=== PATIENT | male | born 1950 | race Caucasian/White ===

== ENCOUNTER 2019-03-01 06:19 | Inpatient (IN) | payer MEDICARE, BC ==
[2019-02-11 15:32] LABS: BASOPHILS % (AUTO) 0.3 % (0-1); EOSINOPHILS # (AUTO) 0.1 X10'3 (0-0.9); EOSINOPHILS % (AUTO) 1.4 % (0-6); LYMPHOCYTES # (AUTO) 1.3 X10'3 (1.1-4.8); LYMPHOCYTES % (AUTO) 20.7 % (21-51); MEAN CORPUSCULAR HEMOGLOBIN 33.6 PG (27.0-31.0); MEAN CORPUSCULAR HGB CONC 34.3 g/dL (33.0-36.5); MEAN CORPUSCULAR VOLUME 97.8 FL (78-98); MEAN PLATELET VOLUME 7.1 FL (7.4-10.4); MONOCYTES # (AUTO) 0.9 X10'3 (0-0.9); MONOCYTES % (AUTO) 14.6 % (2-12); NEUTROPHILS # (AUTO) 3.9 X10'3 (1.8-7.7); PRE OP HEMOGLOBIN 14.7 g/dL (14.0-17.9); PRE OP PLATELET COUNT 313 X10'3 (140-440); RED BLOOD COUNT 4.39 X10'6 (4.70-6.10); RED CELL DISTRIBUTION WIDTH 14.2 % (11.5-14.5)
[2019-02-11 15:56] LABS: ALBUMIN 3.9 G/DL (3.4-5.0); ALBUMIN/GLOBULIN RATIO 1.4 (1.1-1.5); ALKALINE PHOSPHATASE 64 IU/L (46-116); BLOOD UREA NITROGEN 18 MG/DL (7-18); BUN/CREATININE RATIO 19.6 (5.4-32.0); CALCIUM 8.9 MG/DL (8.5-10.1); CHLORIDE 107 MMOL/L (99-107); CREATININE 0.92 MG/DL (0.60-1.10); PRE OP ALT 32 U/L (30-65); PRE OP ANION GAP 8 (8-16); PRE OP AST 22 U/L (10-37); PRE OP BILIRUB, TOTAL 0.7 MG/DL (0.0-1.0); PRE OP GLUCOSE 86 MG/DL (70-104); PRE OP SODIUM 141 MMOL/L (135-145); TOTAL PROTEIN 6.7 G/DL (6.4-8.2); eGFR 82 ML/MIN
[~2019-03-01] VITALS: Ht 188 cm; Wt 72.2 kg
[2019-03-01] VITALS (19 sets, daily range): BP systolic 97–136; BP diastolic 56–79
[~2019-03-01 06:19] MED LIST: LISI-600 PO; cefazolin/dext.iso 2gm/100ml 100 ML IV ONE; famotidine 10mg tablet PO ONE; ringers solution, lacted 1,000 ML IV SCH; vancomycin inj 1,500 MG in normal saline 300ml IV soln IV ONE
[2019-03-01] MEDS ORDERED: ROPIVAcaine 0.5% (5mg/ml) 30ml vial ONE ×2 (09:20→12:16)
[2019-03-01] MEDS ORDERED: ketorolac trometh. 30mg/ml inj. ONE (09:20)
[2019-03-01 09:55] LABS: ISTAT ANION GAP 11 (8-12); ISTAT BUN 15 mg/dL (6-19); ISTAT CL 106 mmol/L (99-107); ISTAT CREATININE 0.7 mg/dL (0.8-1.3); ISTAT GLUCOSE 89 mg/dL (70-104); ISTAT HGB 13.3 g/dl (14.0-18.0); ISTAT Hct 39 %PCV (42-52); ISTAT IONIZED CALCIUM 1.18 mmol/L (1.03-1.32); ISTAT NA 139 mmol/L (135-145); ISTAT TOTAL CO2 22 mmol/L (24-32); ISTAT eGFR > 90 ML/MIN; POC BUN/CREATININE RATIO 21.4 (5.4-32.0)
[2019-03-01] MEDS ORDERED: MIDAZolam 5mg/5ml vial ONE (10:04)
[2019-03-01] MEDS ORDERED: fentaNYL/PF 50MCG/1 ML 2ML syringe ONE (10:04)
[2019-03-01] MEDS ORDERED: ringers solution, lacted 1,000 ML IV SCH (10:12)
[2019-03-01] MEDS ORDERED: meperidine/PF 25mg/ml syringe IV PRN ×3 (10:15)
[2019-03-01] MEDS ORDERED: proCHLORperazine 10 MG/2 ml inj IV PRN (10:15)
[2019-03-01] MEDS ORDERED: morphine 4 MG/ML inj SYRINge IV PRN ×2 (10:15)
[2019-03-01] MEDS ORDERED: ondansetron/PF 4mg/2ml inj IV PRN ×2 (10:15→12:35)
[2019-03-01] MEDS ORDERED: sevoflurane 250ml liquid IH ONE (10:21)
[2019-03-01] MEDS ORDERED: tranexamic acid inj. 700 MG in normal saline 100ml IV soln 100 ML IV ONE ×3 (10:30→15:35)
[2019-03-01] MEDS ORDERED: ROPIVAcaine 0.2% (10 MG/5 ML) BOLUS INJECTION INTERSCALE PRN (11:40)
[2019-03-01] MEDS ORDERED: dexamethasone sod phosphate 4mg/ml inj. ONE (12:16)
[2019-03-01] MEDS ORDERED: propofol inj 20 ML IV ONE (12:16)
[2019-03-01] MEDS ORDERED: ondansetron/PF 4mg/2ml inj ONE (12:16)
[2019-03-01] MEDS ORDERED: LIDOcaine 1%/PF 5ML 10 MG/ML VIAL ONE (12:16)
[2019-03-01] MEDS ORDERED: ROPIVAcaine 0.2%/PF PUMP/bolus 550 ML INTERSCALE SCH (12:30)
--- NOTE | 2019-03-01 12:30 | NUR ---
Received from OR via BED, accompanied by Anesthesiologist DR NAPIER-- and report given by Anesthesiolgist. PATIENT A&OX4, DENIES PAIN, V/S WNL, NEUROVASCULAR CHECKS INTACT, 18G PIV LUE, SCD ON, RIGHT SHOULDER DRESSING CDI WITH SLING AND COLD POWDER PACK CDI. ON QUE BALL TO RIGHT SHOULDER AT 4ML/HR
[2019-03-01] MEDS ORDERED: magnesium hydroxide 30ml (MOM) UD suspension PO PRN (12:35)
[2019-03-01] MEDS ORDERED: bisacodyl 10mg suppository rectal RC PRN (12:35)
[2019-03-01] MEDS ORDERED: HYDROmorphone inj. 0.5 MG/0.5 ML DISP.SYRIN IV PRN (12:35)
[2019-03-01] MEDS ORDERED: HYDROmorphone 1 mg/ml syringe IV PRN (12:35)
[2019-03-01] MEDS ORDERED: oxyCODONE IR 5mg (immed. release) tablet PO PRN ×2 (12:35)
[2019-03-01] MEDS ORDERED: diphenhydrAMINE 25mg capsule PO PRN ×2 (12:35)
[2019-03-01] MEDS ORDERED: acetaminophen 325mg tablet PO PRN (12:35)
--- NOTE | 2019-03-01 13:30 | NUR ---
PATIENT A&OX4, DENIES PAIN, V/S WNL, NEUROVASCULAR CHECKS INTACT, 18G PIV LUE, SCD ON, RIGHT SHOULDER DRESSING CDI WITH SLING AND COLD POWDER PACK CDI. ON QUE BALL TO RIGHT SHOULDER AT 4ML/HR. PATIENT TAKEN TO 4023B WITH ALL BELONGINGS AND HOOKED UP TO MONITORS IN ROOM AND REPORT GIVEN TO RN WHO HAS TAKEN OVER PATIENT CARE.
[2019-03-01] MEDS: potassium cl 20mEq in 1/2 NS 1,000 ML IV SCH ×2 (17:00→20:33)
[2019-03-01] MEDS: ceFAZolin 1GM/D5W- ADD-VANTAGE 50 ML IV SCH (17:03)
[2019-03-01] MEDS: acetaminophen 325mg tablet PO SCH ×2 (17:10→21:30)
--- NOTE | 2019-03-01 18:29 | NUR ---
Patient in room [facility] 4023. I have received report from Radha WILSON and had the opportunity to ask questions and assume patient care. Addendum: 03/01/19 at 1830 by Sheridan Rush RN Not Radha WILSON, Report received from Ariella WILSON and Vamshi WILSON
--- NOTE | 2019-03-01 18:30 | NUR ---
Problems reprioritized. Patient report given, questions answered & plan of care reviewed with Sheridan WILSON.
[2019-03-01] MEDS ORDERED: VANCOMYCIN 1gm/H2O 200ml PB 200 ML IV SCH (20:00)
[2019-03-01] MEDS ORDERED: sennosides 8.6mg tablet PO SCH (21:00)
[2019-03-02] MEDS: ceFAZolin 1GM/D5W- ADD-VANTAGE 50 ML IV SCH (00:15)
[2019-03-02 02:00] VITALS: BP 109/73
[2019-03-02] MEDS: acetaminophen 325mg tablet PO SCH ×2 (02:17→07:41)
[2019-03-02] MEDS: potassium cl 20mEq in 1/2 NS 1,000 ML IV SCH (03:46)
[2019-03-02 05:00] VITALS: BP 109/67
[2019-03-02 06:20] LABS: BASOPHILS % (AUTO) 0.2 % (0-1); EOSINOPHILS # (AUTO) 0.1 X10'3 (0-0.9); EOSINOPHILS % (AUTO) 0.6 % (0-6); HEMATOCRIT 34.1 % (42.0-52.0); HEMOGLOBIN 11.7 g/dl (14.0-17.9); LYMPHOCYTES # (AUTO) 0.9 X10'3 (1.1-4.8); LYMPHOCYTES % (AUTO) 10.9 % (21-51); MEAN CORPUSCULAR HEMOGLOBIN 33.5 PG (27.0-31.0); MEAN CORPUSCULAR HGB CONC 34.3 g/dL (33.0-36.5); MEAN CORPUSCULAR VOLUME 97.8 FL (78-98); MEAN PLATELET VOLUME 7.6 FL (7.4-10.4); MONOCYTES # (AUTO) 0.9 X10'3 (0-0.9); MONOCYTES % (AUTO) 10.4 % (2-12); NEUTROPHILS # (AUTO) 6.6 X10'3 (1.8-7.7); NEUTROPHILS % (AUTO) 77.9 % (42-75); PLATELET COUNT 219 X10'3 (140-440); RED BLOOD COUNT 3.49 X10'6 (4.70-6.10); RED CELL DISTRIBUTION WIDTH 14.3 % (11.5-14.5); WHITE BLOOD COUNT 8.5 X10'3 (4.5-11.0)
--- NOTE | 2019-03-02 06:28 | NUR ---
Problems reprioritized. Patient report given, questions answered & plan of care reviewed with Ariella WILSON and Kady WILSON.
[2019-03-02 07:22] LABS: ANION GAP 8 (8-16); CHLORIDE 108 MMOL/L (99-107); POTASSIUM 4.3 MMOL/L (3.5-5.1); SODIUM 138 MMOL/L (135-145); TOTAL CARBON DIOXIDE 22.2 MMOL/L (24-32)
[2019-03-02] MEDS ORDERED: lisinopril 20mg tablet PO SCH (08:00)
[2019-03-02] MEDS ORDERED: aspirin 325mg tablet PO SCH (08:30)
[2019-03-02 10:00] VITALS: BP 92/62
--- NOTE | 2019-03-02 11:03 | NUR ---
Patient stable for discharge home. Post procedure care education provided. On-Q education provided. PIV discontinued, cannula intact. Questions answered. Belongings gathered.
[2019-03-02] MEDS ORDERED: celeCOXIB 100mg capsule PO SCH (20:00)
--- NOTE | 2019-03-06 08:43 | NUR ---
Case management DC follow up: spoke w/pt daughter, pt is doing well, slight swelling possible r/t hx lymphedema, no abnormal swelling, redness, pain. States has to remind pt to cinch sling, but pt is doing well. Pt daughter will be confirming follow up appts today w/Dr espana and PCP Dr Pardo. All questions answered and needs met at [place]. Pt compliant w/medications and understands why they are prescribed. No further questions at this time.
== END 2019-03-02 10:55 | disposition home or self-care (01) | DRG 483 ==
LOC: PAS IN 06:19 → EDSTATUS 08:30 → ORTHO 4S 14:11
PROVIDERS: ADMIT Orthopaedic Surgery; ATTEND Orthopaedic Surgery
PROC: 0LS30ZZ Reposition Right Upper Arm Tendon, Open Approach (ICD-10-PCS; 2019-03-01)
PROC: 3E0T3BZ Introduction of Anesthetic Agent into Peripheral Nerves and Plexi, Percutaneous Approach (ICD-10-PCS; 2019-03-01)
PROC: 0RRJ00Z Replacement of Right Shoulder Joint with Reverse Ball and Socket Synthetic Substitute, Open Approach (ICD-10-PCS; principal; 2019-03-01 10:21)
DX: M19.011 Primary osteoarthritis, right shoulder (principal); D62 Acute posthemorrhagic anemia; S42.111 Displaced fracture of body of scapula, right shoulder; D03.61 Melanoma in situ of right upper limb, including shoulder; M25.511 Pain in right shoulder; I10 Essential (primary) hypertension; Z85.820 Personal history of malignant melanoma of skin; Z72.89 Other problems related to lifestyle; Z79.899 Other long term (current) drug therapy
CPT/HCPCS: 36415; 80047; 80051; 80053; 82948; 85025; 87081; 97110; 97116; 97161; 97530; A4565; A4618; A7000; C1776; G0378; J0690; J1100; J1885; J2250; J2405; J2704; J2795; J3010; J3370; J3480; J7120